=== PATIENT | male | born 1935 ===

== ENCOUNTER 2020-01-07 06:00 | Outpatient (RCR) | payer MEDICARE, OTHER, SELFPAY | END 2020-01-16 23:59 | disposition home or self-care (01) | LOC: GPT 06:00 | PROVIDERS: PCP Emergency Medicine; Referring Provider Family Medicine; Visit Provider Family Medicine | DX: M62.81 Muscle weakness (generalized) (principal); Z91.81 History of falling; F02.81 Dementia in other diseases classified elsewhere, unspecified severity, with behavioral disturbance | CPT/HCPCS: 97110; 97112; 97116; 97161; 97530 ==

== ENCOUNTER 2020-01-17 06:00 | Outpatient (RCR) | payer MEDICARE, OTHER, SELFPAY | END 2020-02-16 23:59 | disposition home or self-care (01) | LOC: GPT 06:00 | PROVIDERS: PCP Emergency Medicine; Referring Provider Family Medicine; Visit Provider Family Medicine | DX: M62.81 Muscle weakness (generalized) (principal); Z91.81 History of falling; F02.81 Dementia in other diseases classified elsewhere, unspecified severity, with behavioral disturbance | CPT/HCPCS: 97110; 97112; 97140; 97530 ==

== ENCOUNTER 2020-02-17 06:00 | Outpatient (RCR) | payer MEDICARE, OTHER, SELFPAY | END 2020-03-17 23:59 | disposition home or self-care (01) | LOC: GPT 06:00 | PROVIDERS: PCP Emergency Medicine; Referring Provider Family Medicine; Visit Provider Family Medicine | DX: Z91.81 History of falling (principal); F02.81 Dementia in other diseases classified elsewhere, unspecified severity, with behavioral disturbance; M62.81 Muscle weakness (generalized) | CPT/HCPCS: 97110; 97112; 97164; 97530 ==

== ENCOUNTER 2020-03-18 06:00 | Outpatient (RCR) | payer MEDICARE, OTHER, SELFPAY | END 2020-04-17 23:59 | disposition home or self-care (01) | LOC: GPT 06:00 | PROVIDERS: PCP Emergency Medicine; Referring Provider Family Medicine; Visit Provider Family Medicine | DX: R29.6 Repeated falls (principal); R53.1 Weakness; Z86.12 Personal history of poliomyelitis; Z86.73 Personal history of transient ischemic attack (TIA), and cerebral infarction without residual deficits | CPT/HCPCS: 97110; 97112; 97530 ==